=== PATIENT | male | born 1990 | race Caucasian/White ===

== ENCOUNTER 2019-11-20 09:41 | Emergency (ER) | payer OTHER ==
[~2019-11-20] VITALS: Ht 180.3 cm; Wt 97.5 kg
== END 2019-11-20 11:39 | disposition home or self-care (01) ==
LOC: ED 09:41
DX: T59.6X1A Toxic effect of hydrogen sulfide, accidental (unintentional), initial encounter (principal); R06.02 Shortness of breath; R11.0 Nausea; R20.2 Paresthesia of skin; R42 Dizziness and giddiness; Z88.0 Allergy status to penicillin; Y92.89 Other specified places as the place of occurrence of the external cause